=== PATIENT | male | born 1965 | race Caucasian/White ===

== ENCOUNTER 2022-05-10 13:53 | Inpatient (IN) | payer OTHER ==
[2022-05-10 14:21] VITALS: BMI 26.1
[2022-05-11] MEDS ORDERED: POLYETHYLENE GLYCOL (HEALTHYLAX) 3350 17 GM PACKET PO PRN (02:55)
[2022-05-11] MEDS ORDERED: DICYCLOMINE HCL 10 MG CAPSULE PO PRN (02:55)
[2022-05-11] MEDS ORDERED: NICOTINE POLACRILEX 2 MG GUM BUC PRN (02:55)
[2022-05-11] MEDS ORDERED: ONDANSETRON *ODT* 4 MG TABLET SL PRN (02:55)
[2022-05-11] MEDS ORDERED: IBUPROFEN 400 MG TABLET (FP) PO PRN (02:55)
[2022-05-11] MEDS ORDERED: NALOXONE HCL (KLOXXADO) 8 MG SPRAY NS PRN (02:55)
[2022-05-11] MEDS ORDERED: MAG HYDROX/AL HYDROX/SIMETH 30 ML UNIT-DOSE CUP PO PRN (02:55)
[2022-05-11] MEDS ORDERED: ACETAMINOPHEN 325 MG TABLET (FP) PO PRN ×2 (02:55)
[2022-05-11] MEDS ORDERED: BISMUTH SUBSALICYLATE 524 MG/30 ML PO PRN (02:55)
[2022-05-11] MEDS ORDERED: MAGNESIUM HYDROX 2400MG/30ML ORAL SUSPENSION 30 ML CUP PO PRN (02:55)
[2022-05-11] MEDS ORDERED: LOPERAMIDE HCL 2 MG CAPSULE PO PRN (02:55)
[2022-05-11] MEDS ORDERED: BENZOCAINE/MENTHOL (CHLORASEPTIC ) LOZENGE MM PRN (02:55)
[2022-05-11] MEDS ORDERED: methaDONE HCL 10 MG TABLET (FOR DETOX USE ONLY) PO ONE ×2 (06:45→10:00)
[2022-05-11] MEDS ORDERED: cloNIDine HCL 0.1 MG TABLET PO PRN (06:45)
[2022-05-11] MEDS: INSULIN SLIDING SCALE (NOVOLOG) 1 VIAL SQ SCH ×3 (07:09→17:38)
[2022-05-11] MEDS ORDERED: methaDONE HCL 10 MG TABLET (FOR DETOX USE ONLY) ONE ×2 (07:10→11:09)
[2022-05-11] MEDS ORDERED: INSULIN (NOVOLOG) ASPART 100 UNITS/ML 10ML VIAL ONE (11:10)
[2022-05-11] MEDS ORDERED: PRENATAL VITAMINS W/ FOLIC ACID TABLET (FP) PO ONE (11:10)
[2022-05-11] MEDS ORDERED: NICOTINE 14 MG/24 HOURS TOPICAL PATCH TD ONE (11:10)
[2022-05-11] MEDS: NICOTINE 14 MG/24 HOURS TOPICAL PATCH TD SCH (11:20)
[2022-05-11] MEDS: PRENATAL VITAMINS W/ FOLIC ACID TABLET (FP) PO SCH (11:20)
[2022-05-11] MEDS ORDERED: CEPHALEXIN MONOHYDRATE 500 MG CAPSULE (UD) PO SCH (13:45)
[2022-05-11] MEDS: PANTOPRAZOLE 40 MG TABLET PO SCH (14:49)
[2022-05-11] MEDS: metoPROLOL SUCCINATE 25 MG TAB.SR.24H (FP) PO SCH (14:49)
[2022-05-11] MEDS: SPIRONOLACTONE 25 MG TABLET PO SCH (14:57)
[2022-05-11] MEDS: metFORMIN HCL 500 MG TABLET (FP) PO SCH (17:37)
[2022-05-11] MEDS: IBUPROFEN 600 MG TABLET (FP) PO PRN (17:49)
[2022-05-11] MEDS ORDERED: MELATONIN 5 MG TABLETS PO SCH (22:00)
[2022-05-11] MEDS: SENNOSIDES 8.6MG TABLET (FP) PO SCH (22:51)
[2022-05-11] MEDS: THIAMINE HCL 100 MG TABLET (FP) PO SCH (22:52)
[2022-05-11] MEDS: ATORVASTATIN CA 40 MG TABLET (FP) PO SCH (22:52)
[2022-05-11] MEDS: CEPHALEXIN MONOHYDRATE 500 MG CAPSULE (UD) PO SCH (22:52)
[2022-05-11] MEDS: CLOPIDOGREL BISULFATE 75 MG TABLET (FP) PO SCH (22:52)
[2022-05-11] MEDS: INSULIN (LEVEMIR) 100 UNITS/ML UNITS SQ SCH (23:20)
[2022-05-12] MEDS: metFORMIN HCL 500 MG TABLET (FP) PO SCH ×2 (06:29→17:05)
[2022-05-12] MEDS: CEPHALEXIN MONOHYDRATE 500 MG CAPSULE (UD) PO SCH ×4 (06:29→22:37)
[2022-05-12] MEDS: INSULIN SLIDING SCALE (NOVOLOG) 1 VIAL SQ SCH ×3 (06:30→17:05)
[2022-05-12] MEDS: LISINOPRIL 5 MG TABLET PO SCH (09:31)
[2022-05-12] MEDS: ASPIRIN 81 MG CHEWABLE TABLETS PO SCH (09:31)
[2022-05-12] MEDS: PRENATAL VITAMINS W/ FOLIC ACID TABLET (FP) PO SCH (09:31)
[2022-05-12] MEDS: PANTOPRAZOLE 40 MG TABLET PO SCH (09:31)
[2022-05-12] MEDS: SPIRONOLACTONE 25 MG TABLET PO SCH (09:31)
[2022-05-12] MEDS: metoPROLOL SUCCINATE 25 MG TAB.SR.24H (FP) PO SCH (09:31)
[2022-05-12] MEDS: NICOTINE 14 MG/24 HOURS TOPICAL PATCH TD SCH (09:51)
[2022-05-12] MEDS: THIAMINE HCL 100 MG TABLET (FP) PO SCH (22:31)
[2022-05-12] MEDS: MELATONIN 5 MG TABLETS PO SCH (22:31)
[2022-05-12] MEDS: SENNOSIDES 8.6MG TABLET (FP) PO SCH (22:32)
[2022-05-12] MEDS: CLOPIDOGREL BISULFATE 75 MG TABLET (FP) PO SCH ×2 (22:32→22:38)
[2022-05-12] MEDS: INSULIN (LEVEMIR) 100 UNITS/ML UNITS SQ SCH (22:32)
[2022-05-12] MEDS: ATORVASTATIN CA 40 MG TABLET (FP) PO SCH (22:32)
[2022-05-13] MEDS: CEPHALEXIN MONOHYDRATE 500 MG CAPSULE (UD) PO SCH ×4 (06:05→22:28)
[2022-05-13] MEDS: metFORMIN HCL 500 MG TABLET (FP) PO SCH ×2 (06:06→17:18)
[2022-05-13] MEDS: INSULIN SLIDING SCALE (NOVOLOG) 1 VIAL SQ SCH ×3 (06:57→17:19)
[2022-05-13] MEDS: ASPIRIN 81 MG CHEWABLE TABLETS PO SCH (09:42)
[2022-05-13] MEDS: IBUPROFEN 600 MG TABLET (FP) PO PRN (09:43)
[2022-05-13] MEDS: metoPROLOL SUCCINATE 25 MG TAB.SR.24H (FP) PO SCH (09:43)
[2022-05-13] MEDS: PRENATAL VITAMINS W/ FOLIC ACID TABLET (FP) PO SCH (09:43)
[2022-05-13] MEDS: PANTOPRAZOLE 40 MG TABLET PO SCH (09:43)
[2022-05-13] MEDS: LISINOPRIL 5 MG TABLET PO SCH (09:43)
[2022-05-13] MEDS: SPIRONOLACTONE 25 MG TABLET PO SCH (09:43)
[2022-05-13] MEDS: NICOTINE 14 MG/24 HOURS TOPICAL PATCH TD SCH (09:44)
[2022-05-13] MEDS ORDERED: methaDONE HCL 10 MG TABLET (FOR DETOX USE ONLY) PO ONE (10:00)
[2022-05-13] MEDS ORDERED: EMPAGLIFLOZIN (NF) 10 MG TABLET PO SCH (11:00)
[2022-05-13] MEDS: GABAPENTIN 300 MG CAPSULE PO SCH (11:46)
[2022-05-13] MEDS: METHOCARBAMOL 500 MG TABLET PO PRN (11:46)
[2022-05-13] MEDS: MELATONIN 5 MG TABLETS PO SCH (22:27)
[2022-05-13] MEDS: SENNOSIDES 8.6MG TABLET (FP) PO SCH (22:27)
[2022-05-13] MEDS: INSULIN (LEVEMIR) 100 UNITS/ML UNITS SQ SCH (22:28)
[2022-05-13] MEDS: ATORVASTATIN CA 40 MG TABLET (FP) PO SCH (22:28)
[2022-05-13] MEDS: THIAMINE HCL 100 MG TABLET (FP) PO SCH (22:28)
[2022-05-13] MEDS: CLOPIDOGREL BISULFATE 75 MG TABLET (FP) PO SCH (22:28)
[2022-05-14] MEDS: METHOCARBAMOL 500 MG TABLET PO PRN ×2 (06:04→09:48)
[2022-05-14] MEDS: metFORMIN HCL 500 MG TABLET (FP) PO SCH ×2 (06:05→17:07)
[2022-05-14] MEDS: CEPHALEXIN MONOHYDRATE 500 MG CAPSULE (UD) PO SCH ×3 (06:05→21:57)
[2022-05-14] MEDS: IBUPROFEN 600 MG TABLET (FP) PO PRN (06:18)
[2022-05-14] MEDS: INSULIN SLIDING SCALE (NOVOLOG) 1 VIAL SQ SCH ×3 (06:44→17:07)
[2022-05-14] MEDS: EMPAGLIFLOZIN 10 MG PO SCH (09:48)
[2022-05-14] MEDS: LISINOPRIL 5 MG TABLET PO SCH (09:48)
[2022-05-14] MEDS: metoPROLOL SUCCINATE 25 MG TAB.SR.24H (FP) PO SCH (09:48)
[2022-05-14] MEDS: PANTOPRAZOLE 40 MG TABLET PO SCH (09:48)
[2022-05-14] MEDS: GABAPENTIN 300 MG CAPSULE PO SCH ×3 (09:48→21:57)
[2022-05-14] MEDS: ASPIRIN 81 MG CHEWABLE TABLETS PO SCH (09:48)
[2022-05-14] MEDS: SPIRONOLACTONE 25 MG TABLET PO SCH (09:48)
[2022-05-14] MEDS: PRENATAL VITAMINS W/ FOLIC ACID TABLET (FP) PO SCH (09:49)
[2022-05-14] MEDS: NICOTINE 14 MG/24 HOURS TOPICAL PATCH TD SCH (09:50)
[2022-05-14] MEDS: ATORVASTATIN CA 40 MG TABLET (FP) PO SCH (21:57)
[2022-05-14] MEDS: MELATONIN 5 MG TABLETS PO SCH (21:57)
[2022-05-14] MEDS: CLOPIDOGREL BISULFATE 75 MG TABLET (FP) PO SCH (21:57)
[2022-05-14] MEDS: THIAMINE HCL 100 MG TABLET (FP) PO SCH (21:57)
[2022-05-14] MEDS: INSULIN (LEVEMIR) 100 UNITS/ML UNITS SQ SCH (21:58)
[2022-05-14] MEDS: SENNOSIDES 8.6MG TABLET (FP) PO SCH (22:02)
[2022-05-15] MEDS: GABAPENTIN 300 MG CAPSULE PO SCH ×3 (06:25→21:34)
[2022-05-15] MEDS: metFORMIN HCL 500 MG TABLET (FP) PO SCH ×2 (06:25→17:31)
[2022-05-15] MEDS: METHOCARBAMOL 500 MG TABLET PO PRN (06:26)
[2022-05-15] MEDS: IBUPROFEN 600 MG TABLET (FP) PO PRN (06:26)
[2022-05-15] MEDS: CEPHALEXIN MONOHYDRATE 500 MG CAPSULE (UD) PO SCH ×3 (06:49→21:41)
[2022-05-15] MEDS: INSULIN SLIDING SCALE (NOVOLOG) 1 VIAL SQ SCH ×3 (07:02→17:32)
[2022-05-15] MEDS: PRENATAL VITAMINS W/ FOLIC ACID TABLET (FP) PO SCH (09:50)
[2022-05-15] MEDS: PANTOPRAZOLE 40 MG TABLET PO SCH (09:50)
[2022-05-15] MEDS: metoPROLOL SUCCINATE 25 MG TAB.SR.24H (FP) PO SCH (09:50)
[2022-05-15] MEDS: LISINOPRIL 5 MG TABLET PO SCH (09:50)
[2022-05-15] MEDS: SPIRONOLACTONE 25 MG TABLET PO SCH (09:50)
[2022-05-15] MEDS: EMPAGLIFLOZIN 10 MG PO SCH (09:51)
[2022-05-15] MEDS: ASPIRIN 81 MG CHEWABLE TABLETS PO SCH (09:51)
[2022-05-15] MEDS: NICOTINE 14 MG/24 HOURS TOPICAL PATCH TD SCH (09:52)
[2022-05-15] MEDS ORDERED: methaDONE HCL 10 MG TABLET (FOR DETOX USE ONLY) PO ONE (10:00)
[2022-05-15 13:23] VITALS: RESP 18
[2022-05-15] MEDS: INSULIN (LEVEMIR) 100 UNITS/ML UNITS SQ SCH (21:32)
[2022-05-15] MEDS: ATORVASTATIN CA 40 MG TABLET (FP) PO SCH (21:34)
[2022-05-15] MEDS: THIAMINE HCL 100 MG TABLET (FP) PO SCH (21:34)
[2022-05-15] MEDS: MELATONIN 5 MG TABLETS PO SCH (21:34)
[2022-05-15] MEDS: CLOPIDOGREL BISULFATE 75 MG TABLET (FP) PO SCH (21:41)
[2022-05-15] MEDS: SENNOSIDES 8.6MG TABLET (FP) PO SCH (21:41)
[2022-05-16] MEDS: CEPHALEXIN MONOHYDRATE 500 MG CAPSULE (UD) PO SCH (06:05)
[2022-05-16] MEDS: metFORMIN HCL 500 MG TABLET (FP) PO SCH (06:05)
[2022-05-16] MEDS: GABAPENTIN 300 MG CAPSULE PO SCH (06:05)
[2022-05-16] MEDS: IBUPROFEN 600 MG TABLET (FP) PO PRN (06:07)
[2022-05-16] MEDS: METHOCARBAMOL 500 MG TABLET PO PRN (06:07)
[2022-05-16] MEDS: INSULIN SLIDING SCALE (NOVOLOG) 1 VIAL SQ SCH (06:45)
[2022-05-16 09:49] VITALS: BP 118/73; PULSE 81; TEMP 97.1
== END 2022-05-16 09:13 | disposition home or self-care (01) | DRG 773 ==
LOC: YASAS 13:53 → Y3N 05-11 11:57
PROVIDERS: ADMIT Allergy & Immunology; ATTEND Surgery
PROC: HZ2ZZZZ Detoxification Services for Substance Abuse Treatment (ICD-10-PCS; principal; 2022-05-11)
DX: F11.23 Opioid dependence with withdrawal (principal); F17.210 Nicotine dependence, cigarettes, uncomplicated; F19.282 Other psychoactive substance dependence with psychoactive substance-induced sleep disorder; E78.5 Hyperlipidemia, unspecified; E11.65 Type 2 diabetes mellitus with hyperglycemia; E11.621 Type 2 diabetes mellitus with foot ulcer; E11.622 Type 2 diabetes mellitus with other skin ulcer; L97.818 Non-pressure chronic ulcer of other part of right lower leg with other specified severity; L97.418 Non-pressure chronic ulcer of right heel and midfoot with other specified severity; Z79.4 Long term (current) use of insulin; I25.10 Atherosclerotic heart disease of native coronary artery without angina pectoris; I10 Essential (primary) hypertension; I25.2 Old myocardial infarction; Z89.512 Acquired absence of left leg below knee
CPT/HCPCS: 73630-TC-RT-FY; 82962; 87811; C9803-CS; Q0162; U0003; U0005